=== PATIENT | female | born 2000 | race Two or more races ===

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

== ENCOUNTER 2021-02-20 08:00 | Outpatient (CLI) | payer OTHER ==
[2021-03-17] MEDS ORDERED: PRENATABS FA T1 EACH PO (20:49)
== END 2021-02-20 08:30 | disposition home or self-care (01) ==
LOC: PPH VACUNA 08:00
DX: Z23 Encounter for immunization (principal)

== ENCOUNTER 2021-03-13 08:00 | Outpatient (CLI) | payer OTHER ==
[2021-03-17] MEDS ORDERED: PRENATABS FA T1 EACH PO (20:49)
== END 2021-03-13 08:30 | disposition home or self-care (01) ==
LOC: PPH VACUNA 08:00
DX: Z23 Encounter for immunization (principal)

== ENCOUNTER 2021-03-17 22:59 | Outpatient (CLI) | payer OTHER | END 2021-03-18 18:20 | disposition home or self-care (01) | LOC: OBS/DEL 22:59 | PROVIDERS: ATTEND Obstetrics & Gynecology | DX: O23.42 Unspecified infection of urinary tract in pregnancy, second trimester (principal); O99.012 Anemia complicating pregnancy, second trimester; D64.89 Other specified anemias; Z3A.21 21 weeks gestation of pregnancy ==

== ENCOUNTER → 2021-03-17 | Emergency (ER) | payer OTHER ==
[~2021-03-17] VITALS: Ht 165.1 cm; Wt 51.3 kg
[~2021-03-17] MED LIST: PRENATABS FA T1 EACH PO
== END | disposition home or self-care (01) ==
LOC: ER 20:36 → EMR PED 20:36 → ER 21:45
DX: N39.0 Urinary tract infection, site not specified (principal); D64.89 Other specified anemias; Z3A.21 21 weeks gestation of pregnancy

== ENCOUNTER 2021-03-22 11:07 | Outpatient (CLI) | payer OTHER | END 2021-03-22 13:00 | disposition home or self-care (01) | LOC: PRENATAL 11:07 | PROVIDERS: ATTEND Obstetrics & Gynecology Maternal & Fetal Medicine | DX: O35.0XX1 Maternal care for (suspected) central nervous system malformation in fetus, fetus 1 (principal); O35.3XX1 Maternal care for (suspected) damage to fetus from viral disease in mother, fetus 1; O98.512 Other viral diseases complicating pregnancy, second trimester; Z36.89 Encounter for other specified antenatal screening; Z3A.22 22 weeks gestation of pregnancy ==

== ENCOUNTER 2021-05-08 16:38 | Emergency (ER) | payer OTHER ==
[~2021-05-08] VITALS: Ht 165.1 cm; Wt 55.8 kg
== END 2021-05-08 19:40 | disposition home or self-care (01) ==
LOC: ER 16:38
DX: R73.02 Impaired glucose tolerance (oral) (principal); Z3A.29 29 weeks gestation of pregnancy

== ENCOUNTER 2021-06-13 03:02 | Outpatient (CLI) | payer OTHER | END 2021-06-13 21:23 | disposition home or self-care (01) | LOC: OBS/DEL 03:02 | PROVIDERS: ATTEND Obstetrics & Gynecology | DX: O60.03 Preterm labor without delivery, third trimester (principal); O23.43 Unspecified infection of urinary tract in pregnancy, third trimester; Z3A.36 36 weeks gestation of pregnancy ==

== ENCOUNTER 2021-07-05 09:52 | Inpatient (IN) | payer OTHER ==
[~2021-07-05] VITALS: Ht 165.1 cm; Wt 59.9 kg
[2021-07-07] MEDS ORDERED: FUSION PLUS CA1 EACH (18:52)
== END 2021-07-10 11:52 | disposition home or self-care (01) | DRG 807 ==
LOC: LDR 07-08 00:16 → OB/GYN 07-08 00:16 → LDR 07-23 13:30
PROVIDERS: ADMIT Obstetrics & Gynecology; ATTEND Obstetrics & Gynecology
PROC: 10E0XZZ Delivery of Products of Conception, External Approach (ICD-10-PCS; principal; 2021-07-08)
PROC: 0UQGXZZ Repair Vagina, External Approach (ICD-10-PCS; 2021-07-08)
PROC: 4A1HXCZ Monitoring of Products of Conception, Cardiac Rate, External Approach (ICD-10-PCS; 2021-07-08)
DX: O71.4 Obstetric high vaginal laceration alone (principal); Z37.0 Single live birth; Z3A.37 37 weeks gestation of pregnancy; Z20.822 Contact with and (suspected) exposure to COVID-19

== ENCOUNTER 2021-07-07 18:42 | Outpatient (CLI) | payer OTHER ==
[2021-07-07] MEDS ORDERED: FUSION PLUS CA1 EACH (18:52)
== END 2021-07-08 06:45 | disposition still patient (30) ==
LOC: OBS/DEL 18:42
PROVIDERS: ATTEND Obstetrics & Gynecology
DX: O47.1 False labor at or after 37 completed weeks of gestation (principal); Z3A.37 37 weeks gestation of pregnancy

== ENCOUNTER 2021-08-29 21:46 | Emergency (ER) | payer OTHER ==
[~2021-08-29] VITALS: Ht 165.1 cm; Wt 52.2 kg
[~2021-08-29 21:46] MED LIST changes: +FUSION PLUS CA1 EACH
[2021-08-30] MEDS ORDERED: MECLIZINE HCL25 MG PO (01:18)
== END 2021-08-30 01:21 | disposition home or self-care (01) ==
LOC: EMR PED 21:46
DX: R42 Dizziness and giddiness (principal)

== ENCOUNTER 2021-11-22 20:43 | Emergency (ER) | payer OTHER ==
[~2021-11-22] VITALS: Ht 165.1 cm; Wt 54.4 kg
[~2021-11-22 20:43] MED LIST changes: +MECLIZINE HCL25 MG PO
== END 2021-11-23 01:32 | disposition home or self-care (01) ==
LOC: ER 20:43
DX: R53.83 Other fatigue (principal)

== ENCOUNTER 2022-12-31 08:01 | Outpatient (CLI) | payer OTHER | END 2022-12-31 09:15 | disposition home or self-care (01) | LOC: PRENATAL 08:01 | PROVIDERS: ATTEND Obstetrics & Gynecology Maternal & Fetal Medicine | DX: O36.80X0 Pregnancy with inconclusive fetal viability, not applicable or unspecified (principal); Z14.8 Genetic carrier of other disease; Z3A.13 13 weeks gestation of pregnancy ==

== ENCOUNTER 2023-02-03 18:29 | Emergency (ER) | payer OTHER ==
[~2023-02-03] VITALS: Ht 165.1 cm; Wt 49.9 kg
[2023-02-03] MEDS ORDERED: MACRODANTIN100 M1 PO (20:18)
[2023-02-03] MEDS ORDERED: MIRALAX510 GM PO (20:18)
== END 2023-02-03 20:24 | disposition home or self-care (01) ==
LOC: ER 18:29
DX: K59.00 Constipation, unspecified (principal); R30.0 Dysuria; Z3A.18 18 weeks gestation of pregnancy

== ENCOUNTER 2023-02-13 08:02 | Outpatient (CLI) | payer OTHER ==
[~2023-02-13 08:02] MED LIST changes: +MACRODANTIN100 M1 PO; +MIRALAX510 GM PO
== END 2023-02-13 09:23 | disposition home or self-care (01) ==
LOC: PRENATAL 08:02
PROVIDERS: ATTEND Obstetrics & Gynecology Maternal & Fetal Medicine
DX: O35.3XX0 Maternal care for (suspected) damage to fetus from viral disease in mother, not applicable or unspecified (principal); O44.00 Complete placenta previa NOS or without hemorrhage, unspecified trimester; Z3A.19 19 weeks gestation of pregnancy

== ENCOUNTER 2023-03-17 19:50 | Emergency (ER) | payer OTHER ==
[~2023-03-17] VITALS: Ht 170.2 cm; Wt 49.9 kg
== END 2023-03-17 22:02 | disposition home or self-care (01) ==
LOC: ER 19:50
PROVIDERS: General Practice
DX: O99.012 Anemia complicating pregnancy, second trimester (principal); D64.9 Anemia, unspecified; Z3A.24 24 weeks gestation of pregnancy

== ENCOUNTER 2023-05-07 19:40 | Outpatient (CLI) | payer OTHER ==
[~2023-05-07] VITALS: Ht 165.1 cm; Wt 52.2 kg
[2023-05-07] MEDS ORDERED: IRON236 MG PO (20:26)
[2023-05-07] MEDS ORDERED: VITAMIN B-121000 MC4 PO (20:26)
[2023-05-07 21:34] LABS: HEMATOCRIT 31.5 % (36.0-45.00); HEMOGLOBIN 10.5 g/dL (12.0-15.00); MEAN CELL VOLUME 90.8 fL (80.00-100.00); MEAN CORPUSCULAR HEMOGLOBIN 30.1 pg (27.00-32.0); MEAN CORPUSCULAR HGB CONC 33.2 g/dl (32.0-36.0); PLATELET COUNT 216 K/uL (150-450); RED BLOOD COUNT 3.47 M/uL (4.00-6.00); RED CELL DISTRIBUTION WIDTH 15.2 % (11.5-14.5)
[2023-05-07 21:37] LABS: URINE APPEARANCE Clear; URINE BILIRRUBIN Negative (NEGATIVE); URINE BLOOD Negative; URINE COLOR Yellow; URINE GLUCOSE Negative (NEGATIVE); URINE LEUKOCYTE Trace; URINE NITRATE Negative; URINE PROTEIN Negative (NEGATIVE); URINE UROBILINOGEN 0.2 E.U./dl
[2023-05-07 21:40] LABS: URINE BACTERIA 190.2 uL (0.0-1933); URINE EPITHELIAL CELLS 16.2 uL (0.0-38.8); URINE RBC 3.3 uL (0.0-20.8); URINE WBC 5.1 uL (0.0-23.2)
== END 2023-05-08 15:52 | disposition home or self-care (01) ==
LOC: OBS/DEL 19:40
PROVIDERS: Specialist; ATTEND Obstetrics & Gynecology
DX: O36.5930 Maternal care for other known or suspected poor fetal growth, third trimester, not applicable or unspecified (principal); O99.013 Anemia complicating pregnancy, third trimester; O26.813 Pregnancy related exhaustion and fatigue, third trimester; R42 Dizziness and giddiness; Z3A.31 31 weeks gestation of pregnancy; Z20.822 Contact with and (suspected) exposure to COVID-19

== ENCOUNTER 2023-06-05 09:37 | Outpatient (CLI) | payer OTHER ==
[~2023-06-05 09:37] MED LIST changes: +IRON236 MG PO; +VITAMIN B-121000 MC4 PO
== END 2023-06-05 10:30 | disposition home or self-care (01) ==
LOC: PRENATAL 09:37
PROVIDERS: ATTEND Obstetrics & Gynecology Maternal & Fetal Medicine
DX: O26.849 Uterine size-date discrepancy, unspecified trimester (principal); O36.8199 Decreased fetal movements, unspecified trimester, other fetus; Z3A.35 35 weeks gestation of pregnancy

== ENCOUNTER 2023-06-23 13:45 | Inpatient (IN) | payer OTHER ==
[~2023-06-23] VITALS: Ht 165.1 cm; Wt 54.0 kg
[2023-06-24 23:23] LABS: URINE APPEARANCE Clear; URINE BILIRRUBIN Negative (NEGATIVE); URINE BLOOD Moderate; URINE COLOR Yellow; URINE GLUCOSE Negative (NEGATIVE); URINE LEUKOCYTE Small; URINE NITRATE Negative; URINE PROTEIN Negative (NEGATIVE); URINE UROBILINOGEN 0.2 E.U./dl
[2023-06-24 23:25] LABS: HEMATOCRIT 33.7 % (36.0-45.00); HEMOGLOBIN 11.4 g/dL (12.0-15.00); MEAN CELL VOLUME 91.1 fL (80.00-100.00); MEAN CORPUSCULAR HEMOGLOBIN 30.8 pg (27.00-32.0); MEAN CORPUSCULAR HGB CONC 33.8 g/dl (32.0-36.0); PLATELET COUNT 198 K/uL (150-450); RED CELL DISTRIBUTION WIDTH 13.8 % (11.5-14.5)
[2023-06-24 23:27] LABS: URINE BACTERIA 13.8 uL (0.0-1933); URINE RBC 6.7 uL (0.0-20.8); URINE WBC 37.5 uL (0.0-23.2)
[2023-06-24 23:38] LABS: INR < 0.93; PARTIAL THROMBOPLASTIN TIME 29.5 SECONDS (22.0-34.0); PROTHROMBIN TIME 9.7 SECONDS (9.0-11.5)
[2023-06-24 23:43] LABS: ALBUMIN 3.1 gm/dL (3.4-5.0); BILIRUBIN TOTAL 0.3 mg/dL (0.3-1.2); CALCIUM 8.9 mg/dL (8.5-10.1); CREATININE SERUM 0.48 mg/dL (0.55-1.02); GFR 163.26; GLOBULINA 3.3 G/DL (2.4-3.5); POTASSIUM 3.78 mEq/L (3.5-5.1); TOTAL PROTEIN 6.4 gm/dL (6.4-8.2)
[2023-06-25 10:45] LABS: HEMATOCRIT 35.5 % (36.0-45.00); HEMOGLOBIN 11.9 g/dL (12.0-15.00); MEAN CELL VOLUME 90.8 fL (80.00-100.00); MEAN CORPUSCULAR HEMOGLOBIN 30.5 pg (27.00-32.0); MEAN CORPUSCULAR HGB CONC 33.5 g/dl (32.0-36.0); PLATELET COUNT 192 K/uL (150-450); RED BLOOD COUNT 3.91 M/uL (4.00-6.00); RED CELL DISTRIBUTION WIDTH 13.8 % (11.5-14.5)
== END 2023-06-27 15:53 | disposition home or self-care (01) | DRG 807 ==
LOC: LDR 06-24 22:02 → OB/GYN 06-25 10:51 → LDR 07-07 13:45
PROVIDERS: Obstetrics & Gynecology; ADMIT Obstetrics & Gynecology; ATTEND Obstetrics & Gynecology
PROC: 4A1HXCZ Monitoring of Products of Conception, Cardiac Rate, External Approach (ICD-10-PCS; 2023-06-24)
PROC: 10E0XZZ Delivery of Products of Conception, External Approach (ICD-10-PCS; principal; 2023-06-25)
DX: O80 Encounter for full-term uncomplicated delivery (principal); Z37.0 Single live birth; Z3A.38 38 weeks gestation of pregnancy; Z20.822 Contact with and (suspected) exposure to COVID-19

== ENCOUNTER 2024-01-30 05:38 | Emergency (ER) | payer OTHER ==
[~2024-01-30] VITALS: Ht 165.1 cm; Wt 49.9 kg
[2024-01-30] MEDS ORDERED: CEFTRIAXONE SODIUM 1,000 MG VIAL IM STA (07:35)
== END 2024-01-30 08:34 | disposition home or self-care (01) ==
LOC: ER 05:39
DX: J03.90 Acute tonsillitis, unspecified (principal)

== ENCOUNTER 2024-04-03 14:44 | Emergency (ER) | payer OTHER ==
[~2024-04-03] VITALS: Ht 165.1 cm; Wt 47.6 kg
[2024-04-03 17:35] LABS: HEMATOCRIT 36.6 % (36.0-45.00); HEMOGLOBIN 12.7 g/dL (12.0-15.00); MEAN CELL VOLUME 83.6 fL (80.00-100.00); MEAN CORPUSCULAR HEMOGLOBIN 29.1 pg (27.00-32.0); MEAN CORPUSCULAR HGB CONC 34.8 g/dl (32.0-36.0); PLATELET COUNT 276 K/uL (150-450); RED BLOOD COUNT 4.38 M/uL (4.00-6.00); RED CELL DISTRIBUTION WIDTH 13.1 % (11.5-14.5)
[2024-04-03 17:59] LABS: PH,URINE 6.5 (5.0-8.0); URINE APPEARANCE Clear; URINE BILIRRUBIN Negative (NEGATIVE); URINE BLOOD Negative; URINE COLOR Yellow; URINE GLUCOSE Negative (NEGATIVE); URINE KETONE Negative (NEGATIVE); URINE LEUKOCYTE Trace; URINE NITRATE Negative; URINE PROTEIN Negative (NEGATIVE); URINE UROBILINOGEN 0.2 E.U./dl
[2024-04-03 18:04] LABS: URINE BACTERIA 285.9 uL (0.0-1933); URINE EPITHELIAL CELLS 32.6 uL (0.0-38.8); URINE RBC 12.6 uL (0.0-20.8)
[2024-04-03 18:06] LABS: CALCIUM 9.6 mg/dL (8.5-10.1); CREATININE SERUM 0.61 mg/dL (0.55-1.02); GFR 122.65; POTASSIUM 3.65 mEq/L (3.5-5.1)
[2024-04-03] MEDS ORDERED: CIPRO500 MG PO (19:24)
== END 2024-04-03 19:45 | disposition home or self-care (01) ==
LOC: ER 14:45
DX: N39.0 Urinary tract infection, site not specified (principal); Z20.822 Contact with and (suspected) exposure to COVID-19

== ENCOUNTER 2024-05-18 14:45 | Emergency (ER) | payer OTHER ==
[~2024-05-18] VITALS: Ht 165.1 cm; Wt 45.4 kg
[~2024-05-18 14:45] MED LIST changes: +CIPRO500 MG PO
[2024-05-18] MEDS ORDERED: FAMOTIDINE/PF 20 MG/2 ML VIAL IV PUSH STA (16:54)
[2024-05-18] MEDS ORDERED: ONDANSETRON HCL 2 MG/ML VIAL IM STA (16:54)
[2024-05-18 17:16] LABS: HEMATOCRIT 35.5 % (36.0-45.00); MEAN CORPUSCULAR HEMOGLOBIN 28.3 pg (27.00-32.0); MEAN CORPUSCULAR HGB CONC 33.7 g/dl (32.0-36.0); PLATELET COUNT 266 K/uL (150-450); RED BLOOD COUNT 4.23 M/uL (4.00-6.00); RED CELL DISTRIBUTION WIDTH 13.4 % (11.5-14.5)
[2024-05-18 17:30] LABS: URINE APPEARANCE Clear; URINE BILIRRUBIN Negative (NEGATIVE); URINE BLOOD Negative; URINE COLOR Yellow; URINE GLUCOSE Negative (NEGATIVE); URINE KETONE Negative (NEGATIVE); URINE LEUKOCYTE Trace; URINE NITRATE Negative; URINE PROTEIN Negative (NEGATIVE); URINE UROBILINOGEN 0.2 E.U./dl
[2024-05-18 17:31] LABS: URINE BACTERIA 289.7 uL (0.0-1933); URINE EPITHELIAL CELLS 5.7 uL (0.0-38.8); URINE RBC 7.9 uL (0.0-20.8); URINE WBC 3.5 uL (0.0-23.2)
[2024-05-18 17:40] LABS: CALCIUM 9.5 mg/dL (8.5-10.1); CREATININE SERUM 0.57 mg/dL (0.55-1.02); GFR 132.63; POTASSIUM 4.09 mEq/L (3.5-5.1)
[2024-05-18] MEDS ORDERED: PEPCID AC20 MG PO (19:07)
[2024-05-18] MEDS ORDERED: ZOFRAN8 MG PO (19:07)
== END 2024-05-18 19:40 | disposition home or self-care (01) ==
LOC: ER 14:47
PROVIDERS: General Practice
DX: K29.70 Gastritis, unspecified, without bleeding (principal); K82.8 Other specified diseases of gallbladder

== ENCOUNTER → 2024-07-24 | Emergency (ER) | payer OTHER ==
[~2024-07-24] VITALS: Ht 165.1 cm; Wt 45.4 kg
[~2024-07-24] MED LIST changes: +PEPCID AC20 MG PO; +ZOFRAN8 MG PO
== END | disposition left against medical advice (07) ==
LOC: ER 11:45
DX: Z53.21 Procedure and treatment not carried out due to patient leaving prior to being seen by health care provider (principal)

== ENCOUNTER 2024-08-11 12:18 | Emergency (ER) | payer OTHER ==
[~2024-08-11] VITALS: Ht 165.1 cm; Wt 43.1 kg
[2024-08-11 12:46] VITALS: BP 101/68; O2SAT 100
[2024-08-11] MEDS ORDERED: BARIUM SULFATE 450 ML ORAL.SUSP PO ONE (13:09)
== END 2024-08-11 18:39 | disposition home or self-care (01) ==
LOC: ER 12:20
DX: R14.3 Flatulence (principal)

== ENCOUNTER → 2024-10-10 | Emergency (ER) | payer OTHER ==
[~2024-10-10] VITALS: Ht 165.1 cm; Wt 43.5 kg
[~2024-10-10] MED LIST changes: +CEFAZOLIN SODIUM 1,000 MG VIAL ONE
== END | disposition left against medical advice (07) ==
LOC: ER 12:01
DX: Z53.21 Procedure and treatment not carried out due to patient leaving prior to being seen by health care provider (principal)

== ENCOUNTER → 2024-11-27 | Emergency (ER) | payer OTHER ==
[~2024-11-27] VITALS: Ht 165.1 cm; Wt 47.2 kg
[~2024-11-27] MED LIST changes: -CEFAZOLIN SODIUM 1,000 MG VIAL ONE
== END | disposition home or self-care (01) ==
LOC: ER 18:06
DX: R80.9 Proteinuria, unspecified (principal)

== ENCOUNTER 2024-12-24 17:01 | Emergency (ER) | payer OTHER ==
[~2024-12-24] VITALS: Ht 165.1 cm; Wt 46.7 kg
[2024-12-24] MEDS ORDERED: FAMOTIDINE/PF 20 MG/2 ML VIAL IV PUSH STA (18:15)
[2024-12-24] MEDS ORDERED: LACTOBACILLUS ACIDOPHILUS 1 CAP CAP PO STA (18:15)
[2024-12-24] MEDS ORDERED: LACTOBACILLUS ACIDOPHILUS 1 CAP CAP PO ONE (18:46)
[2024-12-24 19:18] LABS: BASO % 0.3 % (0.1-1.2); EOS # 0.06 (0.04-0.54); EOS % 1.7 % (0.7-7.0); HEMATOCRIT 35.6 % (34.1-44.9); HEMOGLOBIN 11.5 g/dL (11.2-15.7); LYMPH # 0.85 (1.18-3.74); LYMPH % 23.4 % (19.3-53.1); MEAN CORPUSCULAR HEMOGLOBIN 26.7 pg (25.6-32.2); NEUT % 63.3 % (34.0-71.1); PLATELET COUNT 241 K/uL (163-369); RED CELL DISTRIBUTION WIDTH 12.6 % (11.6-14.4)
[2024-12-24 19:31] LABS: POTASSIUM 4.01 mEq/L (3.5-5.1)
[2024-12-24 19:38] LABS: ALBUMIN 4.3 gm/dL (3.4-5.0); BILIRUBIN TOTAL 0.22 mg/dL (0.3-1.2); CALCIUM 9.4 mg/dL (8.5-10.1); CREATININE SERUM 0.61 mg/dL (0.55-1.02); GFR 121.54; GLOBULINA 3.5 G/DL (2.4-3.5); TOTAL PROTEIN 7.8 gm/dL (6.4-8.2)
== END 2024-12-24 20:21 | disposition home or self-care (01) ==
LOC: ER 17:01
PROVIDERS: General Practice
DX: R10.13 Epigastric pain (principal)

== ENCOUNTER 2025-02-21 20:10 | Emergency (ER) | payer OTHER ==
[~2025-02-21] VITALS: Ht 165.1 cm; Wt 40.8 kg
== END 2025-02-21 22:31 | disposition home or self-care (01) ==
LOC: ER 20:10
DX: K60.2 Anal fissure, unspecified (principal)

== ENCOUNTER → 2025-05-11 | Emergency (ER) | payer OTHER ==
[~2025-05-11] VITALS: Ht 165.1 cm; Wt 48.1 kg
[2025-05-11 23:09] LABS: URINE APPEARANCE Clear; URINE BILIRRUBIN Negative (NEGATIVE); URINE BLOOD Negative; URINE COLOR Yellow; URINE GLUCOSE Negative (NEGATIVE); URINE KETONE Negative (NEGATIVE); URINE LEUKOCYTE Trace; URINE NITRATE Negative; URINE PROTEIN Negative (NEGATIVE); URINE UROBILINOGEN 0.2 E.U./dl
[2025-05-11 23:14] LABS: URINE BACTERIA 131.9 uL (0.0-1933); URINE EPITHELIAL CELLS 3.6 uL (0.0-38.8); URINE RBC 4.3 uL (0.0-20.8); URINE WBC 6.3 uL (0.0-23.2)
[2025-05-11 23:18] LABS: URINE CAST 0.00 uL (0.0-1.40)
[2025-05-11 23:35] LABS: BUN CREA RATIO 16 (7.0-25.0); CREATININE SERUM 0.63 mg/dL (0.55-1.02); GFR 117.10; GLUCOSE FASTING 107 mg/dL (65-100); OSMOLALITY SERUM 284 MOSM/KG (275-295)
[2025-05-11 23:43] LABS: CKMB < 1.0 NG/ML (0.5-3.6)
[2025-05-12 00:41] LABS: BASO % 0.6 % (0.1-1.2); EOS # 0.10 (0.04-0.54); EOS % 1.4 % (0.7-7.0); LYMPH # 2.77 (1.18-3.74); LYMPH % 38.2 % (19.3-53.1); MEAN PLATELET VOLUME 10.00 fl (9.4-12.4); MONO # 0.55 (0.24-0.82); MONO % 7.6 % (4.7-12.5); NEUT # 3.77 (1.56-6.13); NEUT % 51.9 % (34.0-71.1); RED CELL DISTRIBUTION WIDTH 12.9 % (11.6-14.4)
[2025-05-12 01:33] VITALS: BP 126/74; O2SAT 99
== END | disposition home or self-care (01) ==
LOC: ER 19:45
PROVIDERS: General Practice
DX: F41.9 Anxiety disorder, unspecified (principal); R53.1 Weakness

== ENCOUNTER 2025-05-29 19:41 | Emergency (ER) | payer OTHER ==
[~2025-05-29] VITALS: Ht 165.1 cm; Wt 47.6 kg
[2025-05-29 21:26] LABS: BASO % 0.3 % (0.1-1.2); EOS # 0.06 (0.04-0.54); EOS % 0.8 % (0.7-7.0); LYMPH # 1.71 (1.18-3.74); LYMPH % 23.6 % (19.3-53.1); MEAN PLATELET VOLUME 10.30 fl (9.4-12.4); MONO # 0.57 (0.24-0.82); MONO % 7.9 % (4.7-12.5); NEUT # 4.88 (1.56-6.13); NEUT % 67.3 % (34.0-71.1); RED CELL DISTRIBUTION WIDTH 13.3 % (11.6-14.4)
[2025-05-29 21:42] LABS: URINE APPEARANCE Clear; URINE BILIRRUBIN Negative (NEGATIVE); URINE BLOOD Negative; URINE COLOR Yellow; URINE GLUCOSE Negative (NEGATIVE); URINE KETONE Negative (NEGATIVE); URINE LEUKOCYTE Negative; URINE NITRATE Negative; URINE PROTEIN Negative (NEGATIVE); URINE UROBILINOGEN 0.2 E.U./dl
[2025-05-29 21:46] LABS: URINE BACTERIA 22.8 uL (0.0-1933); URINE EPITHELIAL CELLS 3.2 uL (0.0-38.8); URINE RBC 6.7 uL (0.0-20.8); URINE WBC 2.7 uL (0.0-23.2)
[2025-05-29 21:48] LABS: COVID-19 AG NEGATIVE (NEGATIVE)
[2025-05-29 21:51] LABS: URINE CAST 0.00 uL (0.0-1.40)
[2025-05-29 22:02] LABS: ALT/SGPT 20.0 U/L (12-78); AST/SGOT 15.0 U/L (15-37); BILIRUBIN TOTAL 0.26 mg/dL (0.3-1.2); BUN CREA RATIO 14.0 (7.0-25.0); CREATININE SERUM 0.65 mg/dL (0.55-1.02); GFR 112.95; GLOBULINA 3.1 G/DL (2.4-3.5); GLUCOSE FASTING 97.0 mg/dL (65-100); OSMOLALITY SERUM 282.0 MOSM/KG (275-295)
[2025-05-29] MEDS ORDERED: ORPHENADRINE CITRATE 100 MG TABLET PO ONE (23:15)
[2025-05-29] MEDS ORDERED: KETOROLAC TROMETHAMINE 30 MG VIAL IV ONE (23:15)
[2025-05-29] MEDS ORDERED: KETOROLAC TROMETHAMINE 30 MG VIAL ONE (23:18)
[2025-05-29] MEDS ORDERED: PEPCID AC20 MG PO (23:43)
[2025-05-29] MEDS ORDERED: IBUPROFEN800 MG PO (23:43)
== END 2025-05-30 00:29 | disposition home or self-care (01) ==
LOC: ER 19:42
PROVIDERS: Preventive Medicine Public Health & General Preventive Medicine
DX: N83.201 Unspecified ovarian cyst, right side (principal); R10.9 Unspecified abdominal pain; Z20.822 Contact with and (suspected) exposure to COVID-19
CPT/HCPCS: 36415; 74177; Q9965